=== PATIENT | male | born 1960 | race Caucasian/White ===

== ENCOUNTER 2020-01-07 11:09 | Emergency (ER) | payer BC ==
[2020-01-07 11:35] VITALS: BP 146/88
--- NOTE | 2020-01-07 11:54 | UC ---
Back Pain HPI - HPI Summary HPI Summary: 59 male presents to the urgent care c/o severe lower back pain and left hip pain radiating to his left thigh for the past 2 weeks. Pt reports lower back pain was intermittent, but yesterday it worsen and when he woke up pain was severe and constant. He tried to take Ibuprofen PO, but he has an episode of vomiting due to pain and he decided to come to the urgent care. Pain is 9/10 worse w/ sitting, better w/ laying down. He states he has mild numbness and tingling sensation over his left thigh. He does some heavy lifting at work. Pt denies saddle anesthesia, urinary or fecal incontinence, urinary symptoms, fever , SOB, chest pain, abdominal pain, N/V/d. Hx of kidney stones. - History of Current Complaint Chief Complaint: UCBackPain Stated Complaint: BACK PAIN Time Seen by Provider: 01/07/20 11:50 Hx Obtained From: Patient Onset/Duration: Gradual Onset, Lasting Weeks - 2 weeks, Still Present, Worse Since - today Timing: Constant, Lasting Weeks - intermittent for 2 weeks, worse today Severity Initially: Mild Severity Currently: Severe Pain Intensity: 9 - lower back pain Pain Scale Used: 0-10 Numeric Back Pain: Is Discrete @ - left lower back and left hip pain radiating to his thigh Character: Sharp, Spasmodic Aggravating Factor(s): Lifting, Bending, Other - sitting Alleviating Factor(s): Rest, OTC Meds Associated Signs And Symptoms: Positive: Numbness - mild on the LF thigh. Negative: Swelling, Redness, Fever, Weakness, Abdominal Pain, Flank Pain, Bladder Incontinence, Bowel Incontinence, Pain with Weight Bearing - Risk Factors AAA Risk Factors: Negative TAD Risk Factors: Negative Cauda Equina Risk Factors: Negative Epidural Abscess Risk Factors: Negative - Allergies/Home Medications Allergies/Adverse Reactions: Allergies Allergy/AdvReac Type Severity Reaction Status Date / Time No Known Allergies Allergy Verified 01/07/20 11:35 Home Medications: Home Medications Cyclobenzaprine TAB* [Flexeril 10 MG TAB*] 10 mg PO TID PRN #21 tab 01/07/20 [Rx ] Naproxen TAB* [Naprosyn 250 mg TAB*] 250 mg PO Q8H PRN #30 tab 01/07/20 [Rx] methylPREDNISolone [Medrol Dosepak 4 MG*] 4 mg PO .SEE CHARLENE INSTRUCTION #1 charlene [Rx] PMH/Surg Hx/FS Hx/Imm Hx Previously Healthy: Yes Endocrine History: Dyslipidemia - Surgical History Surgical History: Yes Surgery Procedure, Year, and Place: LEFT KNEE 1981 M[address]ISC[address] TEAR shoulder blade - Family History Known Family History: Positive: Cardiac Disease, Hypertension, Diabetes - Social History Occupation: Employed Full-time Lives: With Family Alcohol Use: Weekly Alcohol Amount: FEW DRINKS/WEEK Substance Use Type: None Smoking Status (MU): Never Smoked Tobacco Have You Smoked in the Last Year: No Review of Systems All Other Systems Reviewed And Are Negative: Yes Constitutional: Positive: Negative Skin: Positive: Negative Eyes: Positive: Negative ENT: Positive: Negative Respiratory: Positive: Negative Cardiovascular: Positive: Negative Gastrointestinal: Positive: Negative Genitourinary: Positive: Negative Motor: Positive: Negative Neurovascular: Positive: Negative Musculoskeletal: Positive: Decreased ROM - lower back, Other: - lower back pain LF>RT and left hip pain Neurological/Mental Status: Positive: Numbness - left thigh Psychological: Positive: Negative Is Patient Immunocompromised?: No Physical Exam - Summary Physical Exam Summary: Vital Signs Reviewed: Yes Appearance: Well-Appearing, Well-Nourished, male sitting in the examining table w/o any apparent distress. Eyes: Positive: Conjunctiva Clear - PERRLA, EOMI. ENT: Positive: Normal ENT inspection, Hearing grossly normal, Pharynx normal, TMs normal, Uvula midline Neck: Positive: Supple, Nontender, No Lymphadenopathy Respiratory: Positive: Chest non-tender, Lungs clear, Normal breath sounds, No respiratory distress Cardiovascular: Positive: RRR, No Murmur, Pulses Normal, Brisk Capillary Refill Abdomen Description: Positive: Nontender, No Organomegaly, Soft. Negative: CVA Tenderness (R), CVA Tenderness (L) Bowel Sounds: Positive: Present Musculoskeletal: Positive: Strength Intact, BACK: Patient walked into the urgent care room with symmetric ambulation, No signs of limping, antalgic, able to bear weight. No signs of trauma, No masses palpated. Point tenderness at the level of L5-S1, No CVAT, no flank ecchymosis . No sacroiliac notch tenderness, No saddle anesthesia.ROM: limited due to pain, Straight Leg Raise: negative. Patellar reflexes: brisk, symmetric Muscle strength lower extremities. Dorsiflexion/ plantar flexion of ankles. Heel/ toe walk. Lower extremities: Femoral, popliteal, posterior tibial, and dorsalis pedis pulses WNL. Pt refuse rectal exam. LF Hip: Pt is able to ambulate without difficulty or assistance, limp, or antalgic gait. No surface trauma, ecchymosis. No erythema, warmth. No deformity, crepitus, or obvious asymmetry of the LF hip. No Tenderness to palpation over the symphysis pubis, ischial bone, trochanter, SI notch, buttocks , quadriceps, femoral triangle, inguinal ligament. Point tenderness on LF lateral side of the hip below the iliac crest. No inguinal lymphadenopathy. FROM limited due to pain. Distal motor and neurovascular status are intact. Neurological: Positive: Alert, Muscle Tone Normal Psychological Exam: Normal Skin Exam: Normal Triage Information Reviewed: Yes Vital Signs: Initial Vital Signs Temp 98 F 01/07/20 11:32 Pulse 61 01/07/20 11:32 Resp 20 01/07/20 11:32 BP 146/88 01/07/20 11:32 Pulse Ox 100 01/07/20 11:32 Back Pain Course/Dx - Course Course Of Treatment: 59 male presents to the urgent care c/o severe lower back pain and left hip pain radiating to his left thigh for the past 2 weeks. Pt reports lower back pain was intermittent, but yesterday it worsen and when he woke up pain was severe and constant. He tried to take Ibuprofen PO, but he has an episode of vomiting due to pain and he decided to come to the urgent care. Pain is 9/10 worse w/ sitting, better w/ laying down. He states he has mild numbness and tingling sensation over his left thigh. He does some heavy lifting at work. Pt denies saddle anesthesia, urinary or fecal incontinence, urinary symptoms, fever , SOB, chest pain, abdominal pain, N/V/d. Hx of kidney stones. Hx obtained. Pt w/ Point tenderness at the level of L5-S1, positive LF paraspinal muscle tenderness and spasm at the same level, also point tenderness left on left hip . No CVAT B/L , no flank ecchymosis on examination. Lumbosacral X-ray and Left hip X-ray ordered, :IMPRESSION: Mild degenerative disc disease in this otherwise nonacute lumbar spine radiograph. Left hip FINDINGS: Negative for fracture. Minimal subarticular sclerosis along the acetabular margin suggesting mild of the osteoarthritis IMPRESSION: MILD EARLY OSTEOARTHRITIS LEFT HIP Ibuprofen PO ordered at the clinic as per radiologist. Pt given Toradol IM inj by the nurse. Pt tolerated well IM inj and pain decrease after an hr. Pt w/ DDD , and muscle spasm and osteoarthritis. UA ordered: trace of blood. However No urinary symptoms and no B/L CVA tenderness. Pt explained about hematuria and advised to f/u w/ DR Arauz for further management. Pt educated on his findings. Pt Rx Naproxen PO, flexeril PO and Medrol dose charlene as directed below. Patient was instructed to wear a back support and to f/u with his PCP or Spinal Nurse Navigator for further management on her DDD. Pt's BP is elevated today and advised to decrease salt in diet, monitor BP and f/u with PCP if BP continues to be elevated for further management. Patient is able to ambulate freely w/o aid or limp and feeling better. Plan of care was discussed with the patient and patient understands and agrees. All questions were answered at patient satisfaction. Pt left clinic hemodynamically stable and ambulating amd feeling better - Differential Dx/Diagnosis Differential Diagnosis/HQI/PQRI: Arthritis, Compressive Cord Syndrome, Herniated Disc, Strain, Sprain Provider Diagnosis: Degenerative disc disease, lumbar, Osteoarthritis of left hip, Muscle spasm, Elevated BP without diagnosis of hypertension Discharge ED - Sign-Out/Discharge Documenting (check all that apply): Patient Departure - D/c home All imaging exams completed and their final reports reviewed: Yes - Discharge Plan Condition: Stable Disposition: HOME Prescriptions: Cyclobenzaprine TAB* [Flexeril 10 MG TAB*] 10 mg PO TID PRN #21 tab PRN Reason: Spasms - Back methylPREDNISolone [Medrol Dosepak 4 MG*] 4 mg PO .SEE CHARLENE INSTRUCTION #1 charlene Naproxen TAB* [Naprosyn 250 mg TAB*] 250 mg PO Q8H PRN #30 tab PRN Reason: moderate pain Patient Education Materials: Muscle Spasm (ED), Degenerative Disc Disease (ED) Forms: *Work Release Referrals: Kevyn Westfall MD [Primary Care Provider] - 1 Week Tamara Soliman Ae, RN [Registered Nurse] - If Needed Dandy Ham MD [Medical Doctor] - If Needed Additional Instructions: 1- Please take Naproxen PO as directed after meals for pain. Medrol dose charlene as directed to alleviate symptoms 2- Take Flexeril PO as directed for muscle spasm. Please do not drive while taking the medication. 3- Avoid strenuous exercise or heavy lifting. Please wear a back support 4- Please call Spinal Nurse Navigator: Connie Soliman: [phone] for further management of your Degenerative disc disease and herniated discs. 5- Please f/u w/ Urologist Dr Arauz for further management in your Hematuria 6- Your BP is elevated today advised to decrease salt in diet, monitor BP and f/ u with PCP for further management. - Billing Disposition and Condition Condition: STABLE Disposition: Home
[2020-01-07] MEDS ORDERED: Famotidine TAB* 20 MG PO ONE (12:04)
[2020-01-07] MEDS ORDERED: Ketorolac INJ* 30 MG/ML 1 ML VIAL IM ONE (12:04)
== END 2020-01-07 14:02 | disposition home or self-care (01) ==
LOC: UCEAST 11:09
DX: M51.36 Other intervertebral disc degeneration, lumbar region (principal); M16.12 Unilateral primary osteoarthritis, left hip; R03.0 Elevated blood-pressure reading, without diagnosis of hypertension; M62.838 Other muscle spasm
CPT/HCPCS: 72110; 81003; 99212; A9270-GY; G0463; J1885